=== PATIENT | female | born 1980 | race Caucasian/White ===

== ENCOUNTER → 2024-05-04 17:51 | Outpatient (CLI) | payer OTHER, SELFPAY ==
--- NOTE | 2024-05-04 17:55 | DI.RAD.S_ITS ---
PROCEDURE: XR FINGER RT MIN 2V INDICATIONS: Right thumb pain TECHNIQUE: AP hand, 2 views of the 1st finger(s) acquired. COMPARISON: None. FINDINGS: Bones: There is a small cortical avulsion fracture off the medial base of the 1st proximal phalanx with probable involvement of the edge of the articular surface. There may be slight comminution. Joint alignment remains normal. No suspicious bone lesions. Soft tissues: No suspicious soft tissue calcifications. IMPRESSION: Probably intra-articular avulsion fracture off the medial base of the 1st proximal phalanx. Dictated by: Sharyn Dickerson M.D. on 05/05/2024 at 8:32 Approved by: Sharyn Dickerson M.D. on 05/05/2024 at 8:35
== END ==
PROVIDERS: Referring Provider Nurse Practitioner Family; Visit Provider Nurse Practitioner Family
DX: S62.511A Displaced fracture of proximal phalanx of right thumb, initial encounter for closed fracture (principal); S60.011A Contusion of right thumb without damage to nail, initial encounter; X58.XXXA Exposure to other specified factors, initial encounter
CPT/HCPCS: 73140